=== PATIENT | male | born 1960 | race Caucasian/White ===

== ENCOUNTER → 2021-09-27 09:54 | Outpatient (BNVA) | payer BC, SELFPAY | PROVIDERS: PCP Internal Medicine; Visit Provider Internal Medicine Rheumatology | DX: M05.79 Rheumatoid arthritis with rheumatoid factor of multiple sites without organ or systems involvement (principal); Z79.899 Other long term (current) drug therapy; Z11.1 Encounter for screening for respiratory tuberculosis; Z11.59 Encounter for screening for other viral diseases; H26.9 Unspecified cataract; E11.9 Type 2 diabetes mellitus without complications; Z79.4 Long term (current) use of insulin | CPT/HCPCS: 99204 ==

== ENCOUNTER 2021-09-27 11:39 | Outpatient (CLI) | payer BC, SELFPAY ==
--- NOTE | 2021-09-27 11:47 | XR_ITS ---
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 Findings: No fractures or dislocations are seen. There is erosion of the distal right fifth metatarsal both med ially and laterally. There is osteoarthritic change of the right first toe IP joint.No periarticular calcifications are seen. XR/XR foot RT min 3V* [id number] Impression: . Erosion of the distal right fifth metatarsal. 2. Osteoarthritic lytic changes of the right first toe IP joint.
--- NOTE | 2021-09-27 11:47 | XR_ITS ---
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 Findings: No fractures or dislocations are seen. The soft tissues are unremarkable. There is osteoarthritic monica rowing of the left first IP joint and the PIP and DIP joints of the second through fifth fingers. The re are cysts in the base of the left first metacarpal and the trapezium, trapezoid and scaphoid. Ther e is sclerosis of the articulation of the distal radius with the scaphoid and the lunate.No periartic ular calcifications are seen. There is diffuse periarticular demineralization of the joints of the fi ngers. XR/XR hand LT min 3V* [id number] Impression: 1. 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 2. Diffuse periarticular demineralization of the joints of the fingers.
--- NOTE | 2021-09-27 11:47 | XR_ITS ---
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 Findings: No fractures or dislocations are seen. There is erosion of the distal aspect of the left fifth metata rsal both medially and laterally. There is osteoarthritis of the left great toe IP joint.No periartic ular calcifications are seen. There is a small plantar spur. XR/XR foot LT min 3V* [id number] Impression: 1. Erosions of the distal left fifth metatarsal. 2. Osteoarthritis of the left great toe IP joint.
--- NOTE | 2021-09-27 11:47 | XR_ITS ---
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 Findings: No fractures or dislocations are seen. The soft tissues are unremarkable. There is osteoa rthritic change of the distal right first metacarpal and especially of the right third and fourth fin pat DIP joints. There is cystic change of the scaphoid with sclerosis of the articulation with the distal radius. The re is periarticular demineralization. No periarticular calcifications are noted. XR/XR hand RT min 3V* [id number] Impression: 1. Osteoarthritis of multiple joints. 2. Periarticular demineralization of the joints of the fingers of the right stephanie mak
--- NOTE | 2021-09-27 11:47 | XR_ITS ---
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 Findings: No nodules, masses or effusions are seen. The heart is normal. The pulmonary vascularity is not increased. No pneumonia or pneumothorax is seen. The aortic arch shows minimal calcification. Th ere is a dextroscoliosis. XR/XR chest 2V* [id number] Impression: Atherosclerosis.
[2021-09-27 13:04] LABS: Basophils # 0.1 10^3/uL (0.0-0.1); Basophils % 0.6 %; Eosinophils # 0.2 10^3/uL (0.0-0.8); Hematocrit 39.8 % (42.0-52.0); Hemoglobin 13.4 g/dL (11.7-16.6); Lymphocytes # 1.8 10^3/uL (0.8-4.8); Lymphocytes % 21.5 %; Mean Corpuscular HGB Conc 33.7 g/dL (30.0-36.0); Mean Corpuscular Hemoglobin 30.8 pg (28.0-34.0); Mean Corpuscular Volume 91.5 fl (80-94); Mean Platelet Volume 9.5 fL (7.4-10.4); Monocytes # 0.7 10^3/uL (0.2-0.9); Monocytes % 7.9 %; Neutrophils # 5.67 10^3/uL (1.8-7.7); Neutrophils % 67.9 %; Nucleated Red Blood Cells % 0 %; Platelet Count 389 10^3/cmm (130-400); Red Blood Count 4.35 10^6/uL (4.1-5.3); Red Cell Distribution Width 12.7 % (12.1-15.1); White Blood Count 8.4 10^3/uL (4.0-10.0)
[2021-09-27 14:21] LABS: Hepatitis B Core AB, Total Non-Reactive (Nonreactive); Hepatitis B Surface Antigen Non-Reactive (Nonreactive); Hepatitis C Virus Antibody Non-Reactive (Nonreactive)
[2021-09-27 19:27] LABS: Alanine Aminotransferase 13 U/L (0-41); Alkaline Phosphatase 107 IU/L (40-130); Aspartate Amino Transferase 11 U/L (0-40); C Reactive Protein 0.7 mg/L (0.0-4.9); Globulin 2.4 g/dL (1.3-4.6); Total Bilirubin 0.3 mg/dL (0.15-1.2); Total Protein 6.4 g/dL (6.6-8.7)
[2021-09-27 19:39] LABS: 25 Hydroxy Vitamin D 24 ng/mL (30-100)
[2021-10-01 13:13] LABS: Quantiferon Mitogen >10.00 IU/mL; Quantiferon Nil 0.02 IU/mL; Quantiferon Plus TB2 <0.00 IU/mL; Quantiferon TB Gold NEGATIVE (NEGATIVE)
== END 2021-09-27 11:40 | disposition home or self-care (01) ==
LOC: RAD 11:45
PROVIDERS: PCP Internal Medicine; Visit Provider Internal Medicine Rheumatology
DX: M06.9 Rheumatoid arthritis, unspecified (principal); Z79.899 Other long term (current) drug therapy; Z11.59 Encounter for screening for other viral diseases; Z11.1 Encounter for screening for respiratory tuberculosis
CPT/HCPCS: 71046; 73130; 73630; 80076; 82306; 82565; 85025; 86140; 86480; 86704; 86803; 87340

== ENCOUNTER 2021-12-05 10:48 | Outpatient (CLI) | payer BC, OTHER, SELFPAY ==
[2021-12-05 11:13] VITALS: BP 155/78; PULSE 88; RESP 18; TEMP 36.5; O2SAT 99
[2021-12-05] MEDS: sodium chloride 0.9% 250 ML 75 ML IV (11:46)
[2021-12-05] MEDS: acetaminophen 325 mg Tablet 650 MG PO (11:47)
[2021-12-05] MEDS: diphenhydrAMINE 50 mg/mL SDV 1mL 25 MG IV (11:48)
[2021-12-05 12:36] VITALS: BP 126/68; PULSE 73; RESP 18; TEMP 36.5; O2SAT 100
== END 2021-12-05 10:49 | disposition home or self-care (01) ==
LOC: ONCMED 10:59
PROVIDERS: PCP Internal Medicine; Referring Provider Internal Medicine Rheumatology; Visit Provider Internal Medicine Medical Oncology
DX: M05.79 Rheumatoid arthritis with rheumatoid factor of multiple sites without organ or systems involvement (principal)
CPT/HCPCS: 96365; 96375; J1200; J1602; J7050

== ENCOUNTER 2022-01-02 10:00 | Outpatient (CLI) | payer BC, OTHER, SELFPAY ==
[2022-01-02 10:12] VITALS: BP 125/70; PULSE 90; RESP 18; TEMP 36.8; O2SAT 99
[2022-01-02 10:27] LABS: Basophils % 0.6 %; Eosinophils # 0.2 10^3/uL (0.0-0.8); Eosinophils % 2.7 %; Hemoglobin 14.6 g/dL (11.7-16.6); Lymphocytes # 2.2 10^3/uL (0.8-4.8); Lymphocytes % 30.6 %; Mean Corpuscular HGB Conc 33.2 g/dL (30.0-36.0); Mean Corpuscular Hemoglobin 30.7 pg (28.0-34.0); Mean Corpuscular Volume 92.4 fl (80-94); Monocytes # 0.6 10^3/uL (0.2-0.9); Monocytes % 8.5 %; Neutrophils # 4.12 10^3/uL (1.8-7.7); Neutrophils % 57.5 %; Nucleated Red Blood Cells % 0 %; Platelet Count 313 10^3/cmm (130-400); Red Blood Count 4.76 10^6/uL (4.1-5.3); Red Cell Distribution Width 12.5 % (12.1-15.1); White Blood Count 7.2 10^3/uL (4.0-10.0)
[2022-01-02] MEDS: sodium chloride 0.9% 250 ML 50 ML IV (10:40)
[2022-01-02] MEDS: acetaminophen 325 mg Tablet 650 MG PO (10:44)
[2022-01-02] MEDS: diphenhydrAMINE 50 mg/mL SDV 1mL 25 MG IV (10:46)
[2022-01-02 11:00] LABS: Erythrocyte Sedimentation Rate 8 mm/hr (0-10)
[2022-01-02 11:05] LABS: Alanine Aminotransferase 16 U/L (0-41); Albumin Level 4.4 g/dL (3.5-5.2); Alkaline Phosphatase 104 IU/L (40-130); Aspartate Amino Transferase 16 U/L (0-40); Globulin 2.5 g/dL (1.3-4.6); Glomerular Filtration Rate 98.3 mL/min (90-130); Total Bilirubin 0.3 mg/dL (0.15-1.2); Total Protein 6.9 g/dL (6.6-8.7)
[2022-01-02 11:46] VITALS: BP 145/76; PULSE 70; RESP 18; TEMP 36.6; O2SAT 98
== END 2022-01-02 10:01 | disposition home or self-care (01) ==
PROVIDERS: PCP Internal Medicine; Referring Provider Internal Medicine Rheumatology; Visit Provider Internal Medicine Rheumatology
DX: M05.79 Rheumatoid arthritis with rheumatoid factor of multiple sites without organ or systems involvement (principal); Z79.899 Other long term (current) drug therapy
CPT/HCPCS: 80076; 82565; 85025; 85651; 96365; 96375; J1200; J1602; J7050

== ENCOUNTER → 2022-07-15 13:47 | Outpatient (BNVA) | payer BC, SELFPAY | PROVIDERS: PCP Internal Medicine; Visit Provider Internal Medicine Rheumatology | DX: Z79.899 Other long term (current) drug therapy (principal); M05.79 Rheumatoid arthritis with rheumatoid factor of multiple sites without organ or systems involvement; Z71.85 Encounter for immunization safety counseling | CPT/HCPCS: 36415; 80076; 82565; 85025; 86140 ==

== ENCOUNTER 2022-10-02 10:49 | Outpatient (CLI) | payer BC, SELFPAY ==
[2022-10-02 11:26] VITALS: BP 116/70; PULSE 84; RESP 18; TEMP 36.5; O2SAT 99
[2022-10-02 11:34] LABS: Basophils # 0.1 10^3/uL (0.0-0.1); Basophils % 0.6 %; Eosinophils # 0.2 10^3/uL (0.0-0.8); Hemoglobin 12.8 g/dL (11.7-16.6); Lymphocytes # 1.7 10^3/uL (0.8-4.8); Lymphocytes % 18.5 %; Mean Corpuscular HGB Conc 33.7 g/dL (30.0-36.0); Mean Corpuscular Hemoglobin 31.5 pg (28.0-34.0); Mean Corpuscular Volume 93.6 fl (80-94); Mean Platelet Volume 9.9 fL (7.4-10.4); Monocytes # 0.6 10^3/uL (0.2-0.9); Monocytes % 6.8 %; Neutrophils # 6.51 10^3/uL (1.8-7.7); Neutrophils % 71.8 %; Nucleated Red Blood Cells % 0 %; Platelet Count 319 10^3/cmm (130-400); Red Blood Count 4.06 10^6/uL (4.1-5.3); Red Cell Distribution Width 12.5 % (12.1-15.1); White Blood Count 9.1 10^3/uL (4.0-10.0)
[2022-10-02 11:40] LABS: Erythrocyte Sedimentation Rate 11 mm/hr (0-10)
[2022-10-02] MEDS: sodium chloride 0.9% 250 ML 50 ML IV (11:49)
[2022-10-02] MEDS: diphenhydrAMINE 50 mg/mL SDV 1mL 25 MG IVP (11:49)
[2022-10-02 11:57] LABS: Albumin Level 3.8 g/dL (3.5-5.2); Alkaline Phosphatase 93 U/L (40-130); Globulin 3.1 g/dL (1.3-4.6); Glomerular Filtration Rate 85.5 mL/min (90-130); Total Bilirubin 0.2 mg/dL (0.15-1.2); Total Protein 6.9 g/dL (6.6-8.7)
[2022-10-02 11:59] LABS: Alanine Aminotransferase 18 U/L (0-41); Aspartate Amino Transferase 18 U/L (0-40)
[2022-10-02] MEDS: acetaminophen 325 mg Tablet 650 MG PO (12:13)
[2022-10-02 13:02] VITALS: BP 120/59; PULSE 83; RESP 18; TEMP 36.5; O2SAT 97
== END 2022-10-02 10:50 | disposition home or self-care (01) ==
PROVIDERS: PCP Internal Medicine; Visit Provider Internal Medicine Rheumatology
DX: M05.79 Rheumatoid arthritis with rheumatoid factor of multiple sites without organ or systems involvement (principal)
CPT/HCPCS: 36415; 80076; 82565; 85025; 85651; A4222; J1200; J1602; J7050

== ENCOUNTER → 2023-01-16 15:17 | Outpatient (BNVA) | payer BC, SELFPAY | PROVIDERS: PCP Internal Medicine; Visit Provider Internal Medicine Rheumatology | DX: M05.79 Rheumatoid arthritis with rheumatoid factor of multiple sites without organ or systems involvement (principal); Z79.899 Other long term (current) drug therapy; Z71.85 Encounter for immunization safety counseling | CPT/HCPCS: 36415; 80076; 82565; 85025; 86140 ==

== ENCOUNTER → 2023-04-17 10:30 | Outpatient (BNVA) | payer BC, SELFPAY | PROVIDERS: PCP Internal Medicine; Visit Provider Internal Medicine Rheumatology | DX: Z71.85 Encounter for immunization safety counseling (principal); Z79.899 Other long term (current) drug therapy; M05.79 Rheumatoid arthritis with rheumatoid factor of multiple sites without organ or systems involvement; R53.83 Other fatigue | CPT/HCPCS: 36415; 80076; 82565; 84439; 84443; 85025 ==

== ENCOUNTER 2023-08-08 09:37 | Outpatient (CLI) | payer BC, SELFPAY ==
--- NOTE | 2023-08-08 09:58 | XR_ITS ---
WS: [email or web address] Exam: XR cervical spine 3V* [id number] Date/Time of Exam: 08/08/2023 10:05 AM Reason For Exam: Z79.899 - Other [facility] (current) drug therapy No fracture or dislocation. Disc spaces are preserved. Minimal facet DJD. Normal paraspinal soft tiss ues. The odontoid is intact. Mild bilateral carotid artery calcifications. IMPRESSION: 1. Mild facet DJD otherwise negative cervical spine study.
[2023-08-08 10:05] LABS: Basophils % 0.4 %; Eosinophils # 0.1 10^3/uL (0.0-0.8); Eosinophils % 1.1 %; Hematocrit 39.9 % (37-53); Lymphocytes # 1.8 10^3/uL (0.8-4.8); Lymphocytes % 16.5 %; Mean Corpuscular HGB Conc 33.8 g/dL (30-55); Mean Corpuscular Hemoglobin 32.1 pg (27-33); Mean Corpuscular Volume 94.8 fl (82-101); Mean Platelet Volume 9.4 fL (7.4-10.4); Monocytes # 0.8 10^3/uL (0.2-0.9); Monocytes % 7.3 %; Neutrophils # 8.25 10^3/uL (1.8-7.7); Neutrophils % 74.3 %; Nucleated Red Blood Cells % 0 %; Platelet Count 329 10^3/cmm (157-399); Red Blood Count 4.21 10^6/uL (3.85-5.65); Red Cell Distribution Width 12.7 % (12.1-15.1); White Blood Count 11.09 10^3/uL (3.29-11.43)
[2023-08-08 10:30] LABS: Alanine Aminotransferase 22 U/L (0-41); Alkaline Phosphatase 98 U/L (40-130); Aspartate Amino Transferase 21 U/L (0-40); Globulin 3.2 g/dL (1.3-4.6); Glomerular Filtration Rate 97.6 mL/min (90-130); Total Bilirubin 0.4 mg/dL (0.15-1.2); Total Protein 7.2 g/dL (6.6-8.7)
== END 2023-08-08 09:38 | disposition home or self-care (01) ==
PROVIDERS: PCP Internal Medicine; Visit Provider Internal Medicine Rheumatology
DX: M05.79 Rheumatoid arthritis with rheumatoid factor of multiple sites without organ or systems involvement (principal); Z79.899 Other long term (current) drug therapy; M47.812 Spondylosis without myelopathy or radiculopathy, cervical region
CPT/HCPCS: 36415; 72040; 80076; 82565; 85025; 86140

== ENCOUNTER → 2024-01-14 10:19 | Outpatient (BNVA) | payer BC, SELFPAY | PROVIDERS: PCP Internal Medicine; Visit Provider Internal Medicine Rheumatology | DX: M05.79 Rheumatoid arthritis with rheumatoid factor of multiple sites without organ or systems involvement (principal); Z79.899 Other long term (current) drug therapy | CPT/HCPCS: 36415; 80076; 82565; 85025; 86140 ==